=== PATIENT | male | born 1975 | race Caucasian/White ===

== ENCOUNTER 2021-07-14 09:07 | Emergency (ER) | payer SELFPAY ==
[~2021-07-14] VITALS: Ht 160 cm; Wt 59.0 kg
--- NOTE | 2021-07-14 09:08 | NUR ---
Pt walked into ER hallway per law enforcement.
--- NOTE | 2021-07-14 09:10 | NUR ---
Pt BIB law enforcement re medical clearance. Reporting R index finger bite per . Denies pain. Denies PMH. Awaiting MD bernard.
[2021-07-14 09:19] VITALS: BP_SYST 170
--- NOTE | 2021-07-14 09:21 | NUR ---
Dr Noriega to [facility] to examine patient
[2021-07-14] MEDS ORDERED: AUG875 PO (09:26)
[2021-07-14 09:34] VITALS: BP_SYST 170
--- NOTE | 2021-07-14 09:34 | NUR ---
Officer given written and verbal discharge instructions and verbalizes understanding. ER Dr Noriega discussed with patient the results and treatment provided. Patient in stable condition. ID arm band removed. Rx of Augmentin given. Patient educated on pain management and to follow up with PMD. Pain scale 0/10. Opportunity for questions provided and answered. Medication side effect fact sheet provided.
== END 2021-07-14 09:34 | disposition home or self-care (01) ==
LOC: SED 09:07
DX: S61.210A Laceration without foreign body of right index finger without damage to nail, initial encounter (principal); X58.XXXA Exposure to other specified factors, initial encounter; Y93.89 Activity, other specified; Y92.89 Other specified places as the place of occurrence of the external cause; Y99.8 Other external cause status
CPT/HCPCS: 99283